=== PATIENT | female | born 1950 | race Caucasian/White ===

== ENCOUNTER 2018-03-15 06:16 | Observation (INO) | payer MEDICARE, OTHER ==
[~2018-03-15] VITALS: Ht 151.1 cm; Wt 61.3 kg
[2018-03-15] VITALS: BP 115/58; PULSE 78; RESP 18; TEMP 98.1; O2SAT 98
[2018-03-15] MEDS ORDERED: ATOR10TA15 PO (06:46)
[2018-03-15] MEDS ORDERED: GLIP10TA6 PO (06:46)
[2018-03-15] MEDS ORDERED: LISI-515 PO (06:46)
[2018-03-15] MEDS ORDERED: LANTUS2P SQ (06:48)
[2018-03-15] MEDS ORDERED: ceFAZolin 2 GM PREMIX 50 ML ONE (06:59)
[2018-03-15] MEDS ORDERED: ESTROGENS CONJUGATED VAG CREA 15 APPL/30 GM TUBE ONE (06:59)
[2018-03-15] MEDS ORDERED: ACETAMINOPHEN 1000 MG/100 ML 100 ML IV ONE (07:04)
[2018-03-15] MEDS ORDERED: HYDROmorphone HCL PF 2 MG/ML VIAL ONE (07:04)
[2018-03-15] MEDS ORDERED: SUGAMMADEX SODIUM 200 MG/2 ML VIAL IV PUSH ONE (07:04)
[2018-03-15] MEDS ORDERED: BUPIVACAINE/EPINEPHRINE 0.25% 50 ML VIAL ONE (07:07)
[2018-03-15] MEDS ORDERED: NALOXONE HCL 0.4 MG/ML AMP ONE (07:19)
--- NOTE | 2018-03-15 07:29 | PD.OP ---
Operative Report Date of Surgery: Mar 15, 2018 Preoperative Diagnosis: (1) Intramural leiomyoma of uterus (2) Incomplete uterovaginal prolapse (3) Cyst of right ovary (4) Pelvic and perineal pain Postoperative Diagnosis: (1) Intramural leiomyoma of uterus (2) Incomplete uterovaginal prolapse (3) Cyst of right ovary (4) Pelvic and perineal pain Procedure: 1. LAVH 2. BSO 3. culdoplasty Anesthesia: GETA Surgeon: Amy De La Paz Plastic Cutter(s): OR STAFF Operation and Findings: IVF: 2 liters + IV antibiotics + Methylene blue EBL: 100 ml UO: 500 ml Findings: 1. enlarged fibroid uterus 2. extensive adhesions involving the large bowel, mid and left abdominal street 3. extensive adhesions involving both adnexa, uterus and bladder 4. large right ovarian cyst Specimens: cervix, uterus, tubes, ovaries Complications: none Condition: stable Disposition: PACU Descriptions of the procedure: I discussed the risks, benefits and alternatives of the procedure with the patient. Informed consent was obtained after questions were answered. She was then taken to the operating room with her IV running. She was placed in the supine position and was given general anesthesia without difficulties or complications. She was then placed in the dorsal lithotomy position and was prepped and draped in the usual sterile fashion. Attention was first turned to the patient's genital area. A bivalved speculum was introduced inside the patient's vagina. The anterior aspect of the cervix was grasped with a single tooth tenaculum for manipulation. The cervix was carefully dilated and a uterine manipulator was carefully introduced inside her uterus. The rest of the instruments were removed from the patient's vagina and a sterile blue towel was used to cover the perineum. The surgeon changed gloves and attention was then turned to the patient's abdomen. A vertical umbilical incision was made with the scalpel. A 5 mm trocar was introduced inside the patient's abdomen under direct visualization. A pneumo -peritoneum was created with CO2 gas. Next, three 5 mm trocars were introduced inside the patient's abdomen under direct visualization in the lower right, mid , and left abdomen. A survey of the patient's abdomen revealed normal anatomy with numerous areas of adhesions noted in the mid and left abdominal street involving large bowel. A survey of the patient's pelvis revealed the findings noted above. Lysis of adhesions was needed to return anatomy to normal. The round ligaments and infundibulopelvic ligaments were carefully and serially grasped, electrocauterized and cut with the Harmonic scalpel. Excellent hemostasis was noted. The tissues along the uterus on both sides were serially grasped, electrocauterized and transected with the Harmonic scalpel. (Methyline blue was given IV at this time). The ureters were noted to be away from the surgical sites. The uterine vessels were skeletonized, electrocauterized and transected with the Harmonic scalpel. Good hemostasis was noted. Next, the bladder flap was created and the bladder was dissected off the lower uterine segment. Excellent hemostasis was noted. At this point, attention was turned again to the patient's perineal area. The uterine manipulator was removed. The Bovie was used to circumferentially cut the vaginal tissues at the cervico-vaginal junction after Pitressin had been injected. The anterior cul de sac was entered without difficulties. The posterior cul de sac was also entered without difficulties. A retractor was introduced inside the posterior cul de sac. A retractor was placed inside the anterior cul de sac. Curved Carlos clamps were used to clamp the cardinal ligaments. These were transected with Vasquez scissors and stitched with 0-Vicryl. Good hemostasis was noted. The rest of the tissues along the lower uterine segment were serially clamped, transected with Vasquez scissors and stitched with 0 -Vicryl. Good hemostasis was noted at each pedicle. The cervix, uterus, tubes and ovaries were removed and sent to pathology. A sponge stick was used to check each pedicle for hemostasis. All the instruments were removed from the patient's pelvis. A McCalls culdoplasty was carefully done using 0-Vicryl. Next, the peritoneum was reapproximated with a purse string stitch of 0-Vicryl. The pedicles were reapproximated and secured in order to get the vaginal cuff higher in the pelvis. The vaginal tissues were reapproximated with running, locked stitches of 0-Vicryl in a vertical fashion. Premarin cream was placed inside the patient' s vagina. The surgeon changed gloves and attention was turned again to the patient's abdomen. The pneumoperitoneum was recreated. The surgical sites were noted to be hemostatic. Copious irrigation was done. The ureters were identified and found to be away from the surgical sites. There was no evidence of injury or blockage of the ureters or bladder. Surgicel powder was placed over the surgical sites. All of the instruments were removed from the patient's abdomen. The ports were also removed under direct visualization. Excellent hemostasis was noted. The CO2 gas was carefully expressed out of the patient's abdomen. The skin incisions were injected with 0.5 % Marcaine and were reapproximated with subcutaneous stitches of 4-0 Vicryl. Mastisol and steri strips were placed over the incisions. The patient tolerated the procedure well. She was successfully extubated and transferred to PACU in stable condition. Note: I called the patient's at his cell phone several times but there was no answer. I left a voicemail message letting him know that the surgery went well. During recovery, I was able to discuss surgical findings and procedures done with the patient's who verbalized understanding. Amy De La Paz MD Mar 15, 2018 07:29
[2018-03-15] MEDS ORDERED: SODIUM CHLORID 0.9% 500 ML IV PRN (07:30)
[2018-03-15] MEDS ORDERED: CHLORHEXIDINE GLUCONATE 2 % 1 PACK (2 CLOTHS) TOPICAL PRN (07:30)
[2018-03-15] MEDS ORDERED: ceFAZolin 2 GM/NS PREMIX 100 ML IV SCH (07:30)
[2018-03-15] MEDS ORDERED: METOPROLOL TARTRATE 25 MG TAB PO PRN (07:30)
[2018-03-15] MEDS ORDERED: POVIDONE IODINE 5% (ANTISEPSIS KIT) 4 APPLICATIONS EACH NARE PRN (07:30)
[2018-03-15] MEDS ORDERED: INSULIN HUMAN REGULAR 1,000 UNITS/10 ML VIAL SQ PRN (07:30)
[2018-03-15] MEDS ORDERED: LACTATED RINGER'S 1000 ML IV PRN (07:30)
[2018-03-15] MEDS ORDERED: VASOPRESSIN 20 UNITS/ML VIAL ONE (09:04)
[2018-03-15] MEDS ORDERED: METHYLENE BLUE 10 MG/ML VIAL IV ONE (11:00)
[2018-03-15] MEDS ORDERED: *morphine SULFATE 4 MG/ML PERIprocedure ONLY ONE ×2 (11:09→11:30)
[2018-03-15] MEDS ORDERED: *morphine SULFATE 8 MG/ML PERIprocedure ONLY ONE (11:38)
[2018-03-15] MEDS ORDERED: *HYDROmorphone PF 0.5 MG/0.5 ML PERIprocedure ONLY ONE (11:58)
[2018-03-15] MEDS ORDERED: LACTATED RINGER'S 1000 ML INJ 2,000 ML IV ONE (12:00)
[2018-03-15] MEDS ORDERED: PHENYLEPH/NS 1000 MCG/10 ML SYR IV ONE (12:00)
[2018-03-15] MEDS ORDERED: DEXAMETHASONE SOD PHOS 4 MG/ML VIAL IV ONE (12:00)
[2018-03-15] MEDS ORDERED: PROPOFOL 200 MG/20 ML AMP IV ONE (12:00)
[2018-03-15] MEDS ORDERED: ONDANSETRON HCL 4 MG/2 ML VIAL IV ONE (12:00)
[2018-03-15] MEDS ORDERED: ROCURONIUM INJ 50 MG/5 ML SYRINGE IV PUSH ONE (12:00)
[2018-03-15] MEDS ORDERED: LIDOCAINE HCL 1% PF 5 ML SYRINGE OTHER ONE (12:00)
[2018-03-15] MEDS ORDERED: DO NOT ADM ANY ANTICOAGULANT DRUGS PRN (14:15)
[2018-03-15] MEDS ORDERED: SODIUM CHLORIDE 0.9% FLUSH 10 ML FLUSH IV FLUSH PRN (14:30)
[2018-03-15] MEDS ORDERED: ZOLPIDEM TARTRATE 5 MG TAB PO PRN (14:30)
[2018-03-15] MEDS ORDERED: oxyCODONE/ACETAMINOPHEN 5 MG/325 MG TAB PO PRN ×2 (14:30)
[2018-03-15] MEDS ORDERED: IBUPROFEN 600 MG TAB PO PRN (14:30)
[2018-03-15] MEDS ORDERED: PROMETHAZINE INJ 25 MG/ML VIAL IM PRN (14:30)
[2018-03-15] MEDS ORDERED: LORazepam 0.5 MG TAB PO PRN (14:30)
[2018-03-15] MEDS ORDERED: ACETAMINOPHEN 1000 MG/100 ML 100 ML IV PRN (14:30)
[2018-03-15] MEDS ORDERED: ONDANSETRON HCL 4 MG/2 ML VIAL IVP PRN (14:30)
[2018-03-15] MEDS: LACTATED RINGER'S 1000 ML INJ 1,000 ML IV SCH ×2 (15:21→23:24)
[2018-03-15 16:00] VITALS: BP 135/69; PULSE 81; RESP 18; TEMP 98.4; O2SAT 97
[2018-03-15] MEDS: glipiZIDE 10 MG TAB PO SCH (17:44)
[2018-03-15] MEDS: oxyCODONE/ACETAMINOPHEN 5 MG/325 MG TAB PO SCH ×2 (19:12→23:23)
[2018-03-15 20:00] VITALS: BP 117/66; PULSE 73; RESP 18; TEMP 98.2; O2SAT 96
[2018-03-15] MEDS: SODIUM CHLORIDE 0.9% FLUSH 10 ML FLUSH IV FLUSH SCH (20:08)
[2018-03-15] MEDS ORDERED: LISINOPRIL 20 MG TAB PO SCH ×2 (21:00)
[2018-03-15] MEDS ORDERED: INSULIN DETEMIR 100 UNITS/ML VIAL SQ SCH (21:00)
[2018-03-15] MEDS ORDERED: INSULIN GLARGINE 1,000 UNITS/10 ML VIAL SQ SCH (21:00)
[2018-03-15] MEDS: DOCUSATE SODIUM 100 MG CAP PO SCH (21:50)
[2018-03-16] VITALS: BP 115/58; PULSE 78; RESP 18; TEMP 98.1; O2SAT 98
[2018-03-16] MEDS: oxyCODONE/ACETAMINOPHEN 5 MG/325 MG TAB PO SCH ×3 (03:24→11:36)
[2018-03-16 04:00] VITALS: BP 98/59; PULSE 75; RESP 18; TEMP 98.3; O2SAT 97
[2018-03-16 06:02] LABS: AUTOMATED NEUTROPHIL # 11.5 TH/MM3 (1.8-7.7); BASOPHIL # 0.1 TH/MM3 (0-0.2); BASOPHIL % 0.7 % (0.0-2.0); EOSINOPHIL % 0.3 % (0.0-4.0); HEMATOCRIT 33.7 % (35.0-46.0); HEMOGLOBIN 11.6 GM/DL (11.6-15.3); LYMPH % 22.5 % (9.0-44.0); LYMPHOCYTE # 3.6 TH/MM3 (1.0-4.8); MEAN CELL VOLUME 93.3 FL (80.0-100.0); MEAN CORPUSCULAR HEMOGLOBIN 32.1 PG (27.0-34.0); MEAN CORPUSCULAR HGB CONC 34.4 % (32.0-36.0); MEAN PLATELET VOLUME 9.4 FL (7.0-11.0); MONO % 5.2 % (0.0-8.0); MONOCYTE # 0.8 TH/MM3 (0-0.9); NEUT % 71.3 % (16.0-70.0); PLATELET COUNT 198 TH/MM3 (150-450); RED BLOOD COUNT 3.62 MIL/MM3 (4.00-5.30); RED CELL DISTRIBUTION WIDTH 12.6 % (11.6-17.2); WHITE BLOOD COUNT 16.2 TH/MM3 (4.0-11.0)
[2018-03-16 06:34] LABS: BICARBONATE 24.6 MEQ/L (21.0-32.0); CALCIUM 8.6 MG/DL (8.5-10.1); CREATININE 0.48 MG/DL (0.50-1.00)
[2018-03-16] MEDS: LACTATED RINGER'S 1000 ML INJ 1,000 ML IV SCH (06:59)
[2018-03-16] MEDS: glipiZIDE 10 MG TAB PO SCH (07:00)
[2018-03-16 07:15] VITALS: BP 101/56; PULSE 62; RESP 16; TEMP 98.3; O2SAT 96
[2018-03-16] MEDS: SODIUM CHLORIDE 0.9% FLUSH 10 ML FLUSH IV FLUSH SCH (09:00)
[2018-03-16] MEDS: DOCUSATE SODIUM 100 MG CAP PO SCH (09:00)
--- NOTE | 2018-03-16 09:01 | EKG ---
Date Performed: 03/15/2018 Time Performed: 06:48:56 PTAGE: 67 years EKG: Sinus rhythm NORMAL ECG NO PREVIOUS TRACING DOCTOR: Dianne Keller Interpretating Date/Time 03/16/2018 08:59:11
--- NOTE | 2018-03-16 09:11 | HHI.PR ---
Subjective Remarks Doing well, pain is well controlled, eating well; was able to void spontaneously. Objective Vital Signs Vital Signs Date Time Temp Pulse Resp B/P (MAP) Pulse Ox O2 Delivery O2 Flow Rate FiO2 03/16/18 07:15 98.3 62 16 101/56 (71) 96 03/16/18 04:00 98.3 75 18 98/59 (72) 97 03/16/18 00:00 98.1 78 18 115/58 (77) 98 03/15/18 20:00 98.2 73 18 117/66 (83) 96 03/15/18 16:00 98.4 81 18 135/69 (91) 97 03/15/18 14:15 97.8 85 18 141/69 (93) 100 Room Air 03/15/18 12:25 98.0 79 18 141/56 (84) 97 Room Air 03/15/18 12:15 97.5 79 14 148/65 (92) 100 Room Air 03/15/18 11:45 77 16 156/68 (97) 100 Room Air 03/15/18 11:30 74 16 170/68 (102) 100 Room Air 03/15/18 11:15 75 16 132/56 (81) 100 Room Air 03/15/18 11:00 97.6 79 16 150/60 (90) 96 Room Air I/O 03/15/18 03/15/18 03/15/18 03/16/18 03/16/18 03/16/18 07:00 15:00 23:00 07:00 15:00 23:00 Intake Total 2000 ml 1408 ml Output Total 950 ml 1250 ml Balance 1050 ml 158 ml Intake IV Total 2000 ml 1408 ml Output Urine Total 850 ml 1250 ml Estimated Blood Loss 100 ml Result Diagram: 03/16/18 0548 03/16/18 0548 Objective Remarks Chest is clear, regular rate and rhythm. Abdomen is soft and non-distended. Incision is clean and dry. Ext no CCE. A/P Assessment and Plan Post Op Day 1 Doing well Home today and return to office in two weeks. Amy De La Paz MD Mar 16, 2018 09:11
[2018-03-16 12:17] VITALS: BP 118/71; PULSE 62; RESP 16; TEMP 98.2; O2SAT 98
[2018-03-16] MEDS ORDERED: ONDANSETRON ODT 4 MG TAB PO PRN (13:45)
--- NOTE | 2018-03-16 13:47 | HHI.DCPOC ---
Discharge Care Plan Diagnosis: (1) Intramural leiomyoma of uterus (2) Incomplete uterovaginal prolapse (3) Cyst of right ovary (4) Pelvic and perineal pain Report Symptoms to Your Doctor -Temperature above 100.5 degrees -Redness, of incision or excessive or foul smelling drainage -Unusual pain or calf pain -Increased vaginal bleeding -Painful or difficulty urinating -Feelings of extreme sadness or anxiety after 2 weeks Goals to Promote Your Health * To prevent worsening of your condition and complications * To maintain your health at the optimal level Directions to Meet Your Goals Take your medications as prescribed Follow your dietary instruction Follow activity as directed Ensure plenty of rest for recovery Drink fluids for hydration Keep your appointments as scheduled Take your immunizations and boosters as scheduled If your symptoms worsen call your PCP, if no PCP go to Urgent Care Center or Emergency Room Smoking is Dangerous to Your Health. Avoid second hand smoke Call the 24-hour crisis hotline for domestic abuse at Amy De La Paz MD Mar 16, 2018 13:47
== END 2018-03-16 14:45 | disposition home or self-care (01) ==
LOC: HSDC 06:16 → H1EA 14:33 → INTOOBSV 14:33
PROVIDERS: ADMIT Obstetrics & Gynecology; ATTEND Obstetrics & Gynecology
DX: D25.1 Intramural leiomyoma of uterus (principal); N81.2 Incomplete uterovaginal prolapse; D27.0 Benign neoplasm of right ovary; R10.2 Pelvic and perineal pain; N84.0 Polyp of corpus uteri; N80.0 Endometriosis of uterus; N88.8 Other specified noninflammatory disorders of cervix uteri; N83.8 Other noninflammatory disorders of ovary, fallopian tube and broad ligament; I10 Essential (primary) hypertension; E11.9 Type 2 diabetes mellitus without complications; E66.9 Obesity, unspecified
CPT/HCPCS: 00840; 57268; 58552; 80048; 82948; 85025; 86850; 86900; 86901; 88307; 93005; 94150; 96361; 96365; 96372; 96375; 96376; C1765; G0378; J0131; J0690; J1100; J1170; J2270; J2310; J2370; J2405; J3010; J7120